=== PATIENT | female | born 1975 | race Caucasian/White ===

== ENCOUNTER → 2019-07-25 11:58 | Outpatient (CLI) | payer OTHER, SELFPAY ==
--- NOTE | 2019-07-25 | DI.RAD.S_ITS ---
PROCEDURE: FL GUIDED PICC PLACEMENT INDICATIONS: Right lower quadrant abd mass COMPARISON: None. FINDINGS: PICC was placed by the intravenous therapy team from the right side. Fluoroscopic spot film demonstrates the tip of PICC projecting to the area of distal SVC IMPRESSION: Tip of PICC projects to the area of distal SVC Dictated by: Homer Burnett M.D. on 07/25/2019 at 14:07 Approved by: Homer Burnett M.D. on 07/25/2019 at 14:08
== END ==
PROVIDERS: Referring Provider Specialist; Visit Provider Specialist
DX: R19.03 Right lower quadrant abdominal swelling, mass and lump (principal)
CPT/HCPCS: 36573